=== PATIENT | male | born 1980 | race African-American/Black ===

== ENCOUNTER 2025-06-22 23:28 | Emergency (ER) | payer SELFPAY ==
[~2025-06-22] VITALS: Ht 165.1 cm; Wt 88.0 kg
[2025-06-22 23:55] VITALS: O2SAT 96
[2025-06-23] MEDS: KETOROLAC 15MG/ML VIAL IM ONE (01:33)
[2025-06-23] MEDS: KETOROLAC 15MG/ML VIAL IM NR (01:33)
[2025-06-23] MEDS: FLUORESCEIN SODIUM 1MG/STRIP LEFTEYE NR (01:33)
[2025-06-23] MEDS: TETRACAINE 0.5% OPHTH DROPS 4ML BOTHEYE NR (01:34)
[2025-06-23] MEDS: FLUORESCEIN SODIUM 1MG/STRIP LEFTEYE ONE (01:37)
[2025-06-23] MEDS: TETRACAINE 0.5% OPHTH DROPS 4ML BOTHEYE ONE (01:37)
[2025-06-23] MEDS ORDERED: ERYT1OIN6 LEFTEYE (01:52)
[2025-06-23] MEDS ORDERED: BRIM2.5D OP (01:55)
[2025-06-23 02:32] VITALS: BP 152/103; PULSE 76; RESP 16; TEMP 36.9; O2SAT 99
[2025-06-23] MEDS: ACETAMINOPHEN 325MG TABLET PO ONE (02:32)
== END 2025-06-23 02:34 | disposition home or self-care (01) ==
LOC: ER 23:28
DX: S05.02XA Injury of conjunctiva and corneal abrasion without foreign body, left eye, initial encounter (principal); H01.006 Unspecified blepharitis left eye, unspecified eyelid; Z79.899 Other long term (current) drug therapy; X58.XXXA Exposure to other specified factors, initial encounter; Y93.89 Activity, other specified; Y92.89 Other specified places as the place of occurrence of the external cause; Y99.8 Other external cause status
CPT/HCPCS: 99283; 96372; J1885